=== PATIENT | male | born 1940 | race Caucasian/White ===

== ENCOUNTER 2018-01-16 21:25 | Emergency (ER) | payer OTHER ==
[~2018-01-16] VITALS: Ht 172.7 cm; Wt 114.7 kg
[~2018-01-16 21:25] MED LIST: ACCURETIC 201 TABLE1 PO; ACTOPLUS MET1 TABLET PO; ADVAIR HFA120 INHALA IH; AVELOX400 MG PO; CIPROFLOXACIN500 M1 PO; EFFEXOR XR150 MG PO; EFFEXOR XR75 MG PO; ENDOCET 5-3251 EACH PO; FLOMAX0.4 MG PO; FRESHKOTE15 ML BOTH EYES; GLUCOPHAGE500 MG PO; HYCODAN SYRUP480 ML PO; LIPITOR20 MG PO; OXYCODONE HCL5 MG PO; PREDNISONE20 MG PO; PROVENTIL HFA6.7 GM IH; SYMBICORT60 INHALA1 IH; TRICOR145 MG PO; VENLAFAXINE HCL75 M3 PO; ZITHROMAX250 MG PO; ZOFRAN4 MG PO
[2018-01-16 22:27] LABS: HEMATOCRIT 43.1 % (38.0-50.0); HEMOGLOBIN 14.9 G/DL (12.5-16.6); MCH 32.5 PG (29.0-34.0); MCHC 34.6 G/DL (30.0-36.0); MCV 93.9 FL (86-99); PLATELET COUNT 185 K/uL (156-360); RBC DIS.WIDTH-CV 13.9 % (11.8-14.6); RBC DIS.WIDTH-SD 47.8 % (39-53); RED BLOOD COUNT 4.59 M/uL (4.00-5.50); WHITE BLOOD COUNT 4.6 K/uL (4.1-10.2)
[2018-01-16 22:29] LABS: CARBON DIOXIDE (BICARBONATE) 31.9 MEQ/L (20-31)
[2018-01-16 22:37] LABS: ALBUMIN 4.2 g/dL (3.2-4.8); CHLORIDE 95 mEq/L (99-109); POTASSIUM 4.3 mEq/L (3.7-5.4); SODIUM 137 mEq/L (136-147)
[2018-01-16 22:39] LABS: GLUCOSE 290 mg/dL (70-99)
[2018-01-16 22:40] LABS: TOTAL PROTEIN 6.8 g/dL (6.4-8.3)
[2018-01-16 22:41] LABS: TOTAL BILIRUBIN 0.7 mg/dL (0.0-1.0)
[2018-01-16 22:43] LABS: ALKALINE PHOSPHATASE 61 IU/L (3-129); CREATININE 1.3 mg/dL (0.6-1.3); GFR ESTIMATE (CALCULATED) 57 mL/min/ (58.99-99999)
[2018-01-16 22:44] LABS: UREA NITROGEN (BUN) 27 mg/dL (9-23)
[2018-01-16 22:45] LABS: AST (GOT) 29 IU/L (2-34)
[2018-01-16 22:46] LABS: ALT (GPT) 42 IU/L (3-49); LIPASE 10 U/L (1.0-51.0)
[2018-01-16 23:25] LABS: APPEARANCE CLEAR ((CLEAR)); BILIRUBIN NEGATIVE; BLOOD NEGATIVE; COLOR YELLOW ((YELLOW)); GLUCOSE (STRIP) 150; KETONES NEGATIVE; LEUKOCYTES NEGATIVE; NITRITE NEGATIVE; PROTEIN (STRIP) 30; SPECIFIC GRAVITY 1.026 (1.000-1.030); UCUL ADDED? NO
[2018-01-17 02:15] VITALS: BP 95/63
== END 2018-01-17 02:15 | disposition home or self-care (01) ==
LOC: EME 21:25
PROVIDERS: Physician Assistant
DX: E11.65 Type 2 diabetes mellitus with hyperglycemia (principal); Z79.84 Long term (current) use of oral hypoglycemic drugs; R06.00 Dyspnea, unspecified; I10 Essential (primary) hypertension; J43.9 Emphysema, unspecified; G47.30 Sleep apnea, unspecified; J45.909 Unspecified asthma, uncomplicated; F32.9 Major depressive disorder, single episode, unspecified; Z87.01 Personal history of pneumonia (recurrent); Z87.442 Personal history of urinary calculi; Z90.49 Acquired absence of other specified parts of digestive tract; Z88.1 Allergy status to other antibiotic agents
CPT/HCPCS: 71046; 71275; 80053; 81003; 82010; 82803; 82948; 83690; 85027; 93005; 99281; 99285; J7030